=== PATIENT | female | born 1940 | race Caucasian/White ===

== ENCOUNTER 2018-11-21 09:09 | Day surgery (SDC) | payer OTHER ==
[~2018-11-21] VITALS: Ht 152.4 cm; Wt 67.3 kg
[2018-11-21] VITALS (8 sets, daily range): BP systolic 115–153; BP diastolic 60–70; PULSE 64–79; RESP 14–18; Ht 152.4 cm; Wt 67.3 kg
[2018-11-21] MEDS ORDERED: LACTATED RINGER'S 1,000 ML IV SCH (10:00)
[2018-11-21] MEDS ORDERED: MOXIFLOXACIN 0.5% 3 ML OPH OPER SCH (10:00)
[2018-11-21] MEDS ORDERED: CYCLOPENTOLATE 1% 2 ML OPH OPER SCH (10:00)
[2018-11-21] MEDS ORDERED: PHENYLephrine 2.5% 15 ML OPH OPER SCH (10:00)
[2018-11-21] MEDS ORDERED: TROPICAMIDE 1% 15 ML OPH OPER SCH (10:00)
[2018-11-21] MEDS ORDERED: LIDOCAINE 1% (MPF) 5 ML VIAL ONE (11:13)
[2018-11-21] MEDS ORDERED: TOBRAMYCIN/DEXAMETH 3.5 GM OPH OINT ONE (11:13)
[2018-11-21] MEDS ORDERED: TIMOLOL 0.5% 5 ML OPH ONE (11:13)
[2018-11-21] MEDS ORDERED: EPINEPHrine 1 MG INJ ONE (11:14)
[2018-11-21] MEDS ORDERED: TETRACAINE 0.5% 4 ML OPH ONE (11:14)
[2018-11-21] MEDS ORDERED: MIDAZOLAM 1 MG/ML 2 ML INJ ONE (11:31)
[2018-11-21] MEDS ORDERED: FENTAnyl 50 MCG/ML VIAL ONE (11:34)
[2018-11-21] MEDS ORDERED: TRYPAN BLUE 0.5 ML SYG IO ONE (11:46)
[2018-11-21] MEDS ORDERED: hydrALAzine 20 MG INJ IV PRN (12:00)
[2018-11-21] MEDS ORDERED: HYDROmorphONE 1 MG/5 ML IV SYRINGE IV PRN ×2 (12:00)
[2018-11-21] MEDS ORDERED: TIMOLOL 0.5% 5 ML OPH RIGHT EYE ONE (12:00)
[2018-11-21] MEDS ORDERED: LABETALOL HCL 20MG INJ IV PRN (12:00)
[2018-11-21] MEDS ORDERED: FENTAnyl 50 MCG/ML VIAL IV PRN ×2 (12:00)
== END 2018-11-21 13:25 | disposition home or self-care (01) ==
LOC: SDS 09:09
PROVIDERS: ATTEND Ophthalmology
DX: H25.11 Age-related nuclear cataract, right eye (principal); I10 Essential (primary) hypertension; E11.9 Type 2 diabetes mellitus without complications; E03.9 Hypothyroidism, unspecified
CPT/HCPCS: 82962; 93005; J0171; J2250; J3010; V2632